=== PATIENT | male | born 2000 | race African-American/Black ===

== ENCOUNTER 2022-07-07 05:05 | Emergency (ER) | payer SELFPAY ==
[~2022-07-07] VITALS: Ht 180.3 cm; Wt 70.3 kg
[2022-07-07 05:11] VITALS: BP 130/83
--- NOTE | 2022-07-07 05:14 | NUR ---
Patient ambulated to bed 6.
--- NOTE | 2022-07-07 05:19 | NUR ---
XRAY AT BEDSIDE
--- NOTE | 2022-07-07 05:29 | NUR ---
21YR OLD MALE BIB SELF C/O R SHOULDER PAIN [id number]. INJURY 2 WEEKS AGO WHILE WALKING DOGS. PAIN LEVEL 08/10. PT IN BED WITH HOB ELEVATED . PT A&OX4 SKIN IN TACT . SIDE RAILS UP X1 BED AT LOWEST POSITION. AMOX NO MED HX
--- NOTE | 2022-07-07 05:44 | NUR ---
Dr. Garnica examining patient.
[2022-07-07] MEDS ORDERED: KETOROLAC 30 MG/ML VIAL IM ONE (05:55)
[2022-07-07] MEDS ORDERED: CYCL-711 PO (06:01)
[2022-07-07] MEDS ORDERED: NAPR-54 PO (06:01)
[2022-07-07 06:15] VITALS: BP 130/83
--- NOTE | 2022-07-07 06:15 | NUR ---
Patient discharged with v/s stable. Written and verbal after care instructions given and explained. Patient alert, oriented and verbalized understanding of instructions. Ambulatory with steady gait. All questions addressed prior to discharge. ID band removed. Patient advised to follow up with PMD. Rx of FLEXERIL NAPROSYN given.
--- NOTE | 2022-07-07 06:16 | NUR ---
The patient's care was reviewed and supervised by Misty Pearl RN.
--- NOTE | 2022-07-07 06:16 | NUR ---
PER ERMD INSTRUCTION PT WAS GIVEN A SHOULDER IMMOBILIZER FOR SHOULDER INJURY. PT TOLERATED THE SLING WELL +CMS BEFORE AND AFTER
== END 2022-07-07 06:15 | disposition home or self-care (01) ==
LOC: MED 05:05
DX: S46.811A Strain of other muscles, fascia and tendons at shoulder and upper arm level, right arm, initial encounter (principal); Z79.899 Other long term (current) drug therapy; X58.XXXA Exposure to other specified factors, initial encounter; Y93.89 Activity, other specified; Y92.89 Other specified places as the place of occurrence of the external cause; Y99.8 Other external cause status
CPT/HCPCS: 73030; 99283; Q0092; J1885